=== PATIENT | male | born 1990 | race Caucasian/White ===

== ENCOUNTER 2020-02-03 16:20 | Observation (INO) | payer OTHER, SELFPAY ==
[2020-02-03] VITALS (11 sets, daily range): BP systolic 116–131; BP diastolic 63–78; PULSE 60–82; RESP 16–20; TEMP 36.2–37; O2SAT 98–100; BMI 22.4
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
[2020-02-03] MEDS: OXYCODONE/ACETAMINOPHEN 5/325 TABLET 1 TAB PO (16:59)
[2020-02-03] MEDS: IBUPROFEN 400 MG TABLET PO (16:59)
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
--- NOTE | 2020-02-03 17:10 | PC.NURSE ---
Soft cervical collar applied per provider Melany order.
[2020-02-03] MEDS: KETOROLAC 60 MG/2 ML VIAL 15 MG IV (17:57)
[2020-02-03] MEDS: HYDROMORPHONE 0.5 MG INJ IV (17:58)
[2020-02-03 18:30] LABS: COVID19 -Nasal RAPID Negative (Negative)
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
[2020-02-03] MEDS: DOCUSATE 100 MG CAPSULE PO (20:29)
[2020-02-03] MEDS: ACETAMINOPHEN 325 MG TABLET 650 MG PO (20:29)
[2020-02-03] MEDS: MORPHINE 4 MG/ML INJ IV ×2 (20:30→22:30)
[2020-02-03] MEDS: LACTATED RINGERS 1,000 ML 80 ML IV (20:31)
[2020-02-03] MEDS: NEOMYCIN/POLYMYXIN/BACITRA UD OINT 1 EACH TOP (21:48)
[2020-02-03] MEDS: GABAPENTIN 300 MG CAPSULE PO (21:48)
[2020-02-03] MEDS: KETOROLAC 30 MG/ML VIAL IV (21:59)
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
[2020-02-03] MEDS: ONDANSETRON 4 MG/2 ML INJ IV (22:59)
[2020-02-04] MEDS: OXYCODONE IR 5 MG TABLET 10 MG PO ×2 (00:17→07:04)
[2020-02-04 04:34] VITALS: BP 102/52; PULSE 85; RESP 16; TEMP 36.2; O2SAT 98
--- NOTE | 2020-02-04 07:00 | DI.RAD.S_ITS ---
PROCEDURE: XR CHEST 2V INDICATIONS: f/u. is pneumothorax visible? TECHNIQUE: Inspiratory and expiratory views chest were acquired. COMPARISON: [facility], CT, CT CERVICAL SPINE WO CON, 02/03/2020, 16:58. [facility], CT, CT CHEST W CON, 02/03/2020, 16:58. [facility], CR, XR SHOULDER LT MIN 2V, 02/03/2020, 16:41. FINDINGS: Surgical changes and devices: None. Lungs and pleura: The trace left apical pneumothorax can be seen the prior CT examinations is not visible on the current study. No pleural effusions or infiltrates are seen. Mediastinum: Mediastinal contours are normal. Heart size is normal. Bones and chest wall: No suspicious bony abnormalities. The moderately displaced, comminuted left posterior 2nd rib fracture is again seen. The left T1 transverse process wrist fracture is partially seen. Soft tissues appear unremarkable. IMPRESSION: No pneumothorax visible by plain film. Fractures again seen. Dictated by: Cameron Martinez M.D. on 02/04/2020 at 7:14 Approved by: Cameron Martinez M.D. on 02/04/2020 at 7:15
[2020-02-04 08:00] VITALS: BP 121/69; PULSE 62; RESP 15; TEMP 36.5; O2SAT 100
[2020-02-04] MEDS: ENOXAPARIN 40 MG/0.4 ML SYRINGE SUBCUT (08:27)
[2020-02-04] MEDS: ACETAMINOPHEN 325 MG TABLET 650 MG PO ×2 (08:29→12:38)
[2020-02-04] MEDS: GABAPENTIN 300 MG CAPSULE PO (08:30)
[2020-02-04] MEDS: LIDOCAINE PATCH 1 EACH ADH..PATCH TOP (08:33)
[2020-02-04] MEDS: ONDANSETRON 4 MG/2 ML INJ IV (08:51)
[2020-02-04 09:05] VITALS: PULSE 67; RESP 16; O2SAT 100
--- NOTE | 2020-02-04 10:16 | PC.NURSE ---
Addendum entered by Isaura Wolff R.N. 02/04/20 13:16: Patient given discharge instructions and disc containing imaging. Patient verbalized understanding regarding medication and follow up appointments. Patient encouraged to seek help at home until fully healed. Patient discharged via wheelchair. Tolerated well. Original Note: Patient is A/O x 4. Respirations are WNL at 14-16 bpm, denies SOB or increased WOB, lungs clear, pt on room air. LR at 80cc/hr infusing. Pt C/O aching pain 3/10 in left shoulder. Believes pain medication is effective but he became nauseous over night after morphine administration, given Oxy this morning and scheduled tylenol. Patient c/o of feeling sweaty afterwards, slightly nauseous, blaming it on coffee on an empty stomach, requesting zofran. Zofran PRN administered, on follow up patient is sleeping. Respirations normal. Sling intact. Call light in reach.
[2020-02-04 11:11] VITALS: PULSE 67; RESP 15; O2SAT 100
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
[2020-02-04 11:38] VITALS: BP 144/73; PULSE 57; RESP 16; TEMP 36.4; O2SAT 100
[2020-02-04] MEDS: INFLUENZA VACCINE 0.5 ML SYRINGE IM (11:53)
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
== END 2020-02-04 13:10 | disposition home or self-care (01) ==
LOC: ED 18:23 → AC 20:31
PROVIDERS: Emergency Medicine; Admitting Provider Specialist; Emergency Provider Emergency Medicine; Referring Provider Emergency Medicine; Visit Provider Specialist
DX: S42.032A Displaced fracture of lateral end of left clavicle, initial encounter for closed fracture (principal); M25.512 Pain in left shoulder; V18.0XXA Pedal cycle driver injured in noncollision transport accident in nontraffic accident, initial encounter; Y93.55 Activity, bike riding; S22.018A Other fracture of first thoracic vertebra, initial encounter for closed fracture; S22.32XA Fracture of one rib, left side, initial encounter for closed fracture; J93.9 Pneumothorax, unspecified; Z11.59 Encounter for screening for other viral diseases
CPT/HCPCS: 71046; 71260; 72125; 73030; 87635; 90471; 90656; 94762; 96361; 96372; 96374; 96375; 96376; 97161; 99217; 99219; 99284; G0378; J1170; J1650; J1885; J2270; J2405; Q2038; Q9967

== ENCOUNTER → 2020-02-15 13:26 | Outpatient (CLI) | payer OTHER, SELFPAY ==
[2020-02-03 19:15] VITALS: BMI 22.4
--- NOTE | 2020-02-15 13:29 | DI.RAD.S_ITS ---
PROCEDURE: XR CHEST 2V INDICATIONS: Follow-up after hospitalization for rib fractures/pneumothor TECHNIQUE: 2 views of the chest were acquired. COMPARISON: [facility], CT, CT CHEST W CON, 02/03/2020, 16:58. [facility], CR, XR CHEST 2V, 02/04/2020, 7:00. FINDINGS: Surgical changes and devices: None. Lungs and pleura: Trace left apical pneumothorax is suspected. No findings to suggest developing tension. Lungs are clear. No pleural effusions or pneumothorax. Mediastinum: Mediastinal contours are normal. Heart size is normal. Bones and chest wall: Displaced left 2nd rib fracture is present. No suspicious bony abnormalities. Soft tissues appear unremarkable. IMPRESSION: 1. Trace left apical pneumothorax is suspected. No findings to suggest tendon pneumothorax. 2. Left 2nd rib fracture with displacement. Dictated by: Ankita Barrientos M.D. on 02/15/2020 at 13:41 Approved by: Ankita Barrientos M.D. on 02/15/2020 at 13:46
== END ==
PROVIDERS: Referring Provider Specialist; Visit Provider Specialist
DX: S22.019A Unspecified fracture of first thoracic vertebra, initial encounter for closed fracture (principal); S22.32XA Fracture of one rib, left side, initial encounter for closed fracture; S27.0XXA Traumatic pneumothorax, initial encounter
CPT/HCPCS: 71046; 99213

== ENCOUNTER → 2020-10-23 16:15 | Outpatient (CLI) | payer OTHER, SELFPAY ==
[2020-02-03 19:15] VITALS: BMI 22.4
--- NOTE | 2020-10-23 | DI.MRI.S_ITS ---
PROCEDURE: MR SHOULDER LT WO CON INDICATIONS: Unspecified dislocation of left acromioclavicular TECHNIQUE: Noncontrast oblique coronal T2 fast spin echo with fat saturation, oblique sagittal T1 spin echo and T2 fast spin echo with fat saturation, axial T1 spin echo and T2 fast spin echo with fat saturation through the shoulder. COMPARISON: None. FINDINGS: Rotator cuff: Supraspinatus tendinopathy with low-grade bursal and articular surface fraying. Infraspinatus and teres minor tendons appear intact. Subscapularis tendon appears intact. No atrophy of the rotator cuff muscles although mild fatty infiltration of the infraspinatus is noted. Bones and bursae: No bone marrow contusions or fractures. Severe hypertrophic acromioclavicular joint degeneration. Acromion demonstrates conventional anatomy, without an os acromiale. [id number]-[id number] subacromial-subdeltoid bursitis. Capsule and soft tissues: Labrum: Mild irregularity of the posterior labrum, raising possibility of subtle chronic tear. Minimal adjacent chondral loss. There is minimal degenerative change in the glenoid.. Glenohumeral ligaments: Inferior and superior glenohumeral ligaments are intact. Biceps tendon: Long head of the biceps tendon intact. Rotator interval: Normal signal intensity. Coracohumeral ligament: Intact. IMPRESSION: Supraspinatus tendinopathy with low-grade articular and bursal surface fraying. Mild irregularity of the posterior labrum raising the possibility of a subtle chronic tear versus slightly advanced labral degeneration. Dictated by: Robel Fulton M.D. on 10/23/2020 at 17:18 Approved by: Robel Fulton M.D. on 10/23/2020 at 17:24
== END ==
PROVIDERS: Referring Provider Orthopaedic Surgery; Visit Provider Orthopaedic Surgery
DX: S43.102A Unspecified dislocation of left acromioclavicular joint, initial encounter (principal); M19.012 Primary osteoarthritis, left shoulder; M75.52 Bursitis of left shoulder
CPT/HCPCS: 73221

== ENCOUNTER 2024-10-07 09:54 | Emergency (ER) | payer OTHER, SELFPAY ==
[2020-02-03 19:15] VITALS: BMI 22.4
[2024-10-07 10:04] VITALS: BP 155/71; PULSE 72; RESP 20; TEMP 36.6; O2SAT 99; BMI 21.7
--- NOTE | 2024-10-07 10:15 | DI.MRI.S_ITS ---
PROCEDURE: MR HEAD/BRAIN WO/W CON INDICATIONS: One-month, severe vertigo, retro-orbital pain and morning he TECHNIQUE: Noncontrast axial T1 spin echo, axial T2 fast spin echo, sagittal and axial FLAIR, coronal T2 fast spin echo, axial gradient echo, axial diffusion and ADC through the brain. After the administration of contrast, axial and coronal and sagittal 3D VIBE or T1 spin echo with fat saturation through the brain. COMPARISON: None. FINDINGS: Image quality: Excellent. CSF Spaces: Basal cisterns are patent. No extra-axial fluid collections. Ventricles are normal in size and shape. Brain: No midline shift. No intracranial bleeds or masses. No abnormal intracranial enhancement. The brainstem appears normal. Diffusion-weighted images demonstrate no acute infarct. No chronic ischemic insults. Normal intravascular flow voids are present. Skull and face: Calvarial marrow is normal in signal. Orbits appear normal. Sinuses: Sinuses and mastoids appear clear. IMPRESSION: Normal MRI brain with contrast. Dictated by: Jerry Dalal M.D. on 10/07/2024 at 10:45 Approved by: Jerry Dalal M.D. on 10/07/2024 at 10:47
[2024-10-07 10:30] LABS: Add Manual Diff / Slide Review NO; Hematocrit 43.9 % (41-53); Hemoglobin 14.9 g/dL (13.5-17.5); Lymphocytes Absolute Auto 2400 /uL (1100-4500); Mean Corpuscular HGB Conc 34.0 % (30-36); Mean Corpuscular Hemoglobin 31.0 PG (26-34); Mean Corpuscular Volume 91.0 fL (80-100); Platelet Count 180 X10^3/uL (150-400)
[2024-10-07 10:41] LABS: Alanine Aminotransferase 25 IU/L (<50); Albumin 4.6 g/dL (3.5-5.0); Albumin Globulin Ratio 1.7 (1.0-2.8); Alkaline Phosphatase 46 U/L (38-126); Blood Urea Nitrogen 15 mg/dL (9-20); Calcium 9.1 mg/dL (8.4-10.2); Carbon Dioxide 29 mmol/L (22-32); Chloride 102 mmol/L (98-107); Estimated Glomerular Filt Rate > 60 mL/min (>60); Globulin 2.7 g/dL (1.7-4.1); Glucose 97 mg/dL (70-99); HEMOLYSIS < 15 (0-50); Potassium 4.2 mmol/L (3.4-5.1); Sodium 139 mmol/L (137-145); Total Protein 7.3 g/dL (6.3-8.2)
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
[2024-10-07 11:19] LABS: TSH w/ Reflex to FT4 0.84 uIU/mL (0.47-4.68)
[2024-10-07 12:25] VITALS: BP 155/70; PULSE 70; RESP 18; TEMP 36.6; O2SAT 99
== END 2024-10-07 12:25 | disposition home or self-care (01) ==
PROVIDERS: Emergency Provider Emergency Medicine
DX: R42 Dizziness and giddiness (principal)
CPT/HCPCS: 36415; 70553; 80053; 84443; 85025; 99283; 99284; A9579

== ENCOUNTER 2025-02-26 09:29 | Outpatient (RCR) | payer OTHER, SELFPAY ==
[2020-02-03 19:15] VITALS: BMI 22.4
--- NOTE | 2025-02-26 10:23 | PT.OPPOC ---
Physical, Occupational & Speech Therapy At [facility] Current Diagnoses Dizziness and giddiness (02/26/25) Visit Care Team Role Provider Type Mabel Mchugh MD Attending Provider Non-Staff Family Provider Primary Care Provider Referring Provider Specialty: Family Practice Address: [address] [place] [address], [id number] Email: Plan Of Care PT OP: Balance, Vestibular, Neuro Start: 02/26/25 10:12 Freq: Status: Active Protocol: Document 02/26/25 09:45 DCW (Rec: 02/26/25 10:23 DCW [id number]) Out-Patient Physical Therapy Visit Information Visit Information Visit Type Initial Evaluation Visit Start Time 09:45 Visit Stop Time 10:05 Visit Number 1 Number of IMPORT EXPORT MANAGER Visits 0 Evaluation Information Evaluation Date 02/26/25 Current Condition History of Current Condition Onset Date August, Current Complaints Vertigo History of Current Pt is a 35 year old male presenting with a history of Condition spontaneous vertigo, although is currently asymptomatic . Pt reports that in August, he woke up with fairly severe vertigo lasting multiple hours. Notes symptoms finally subsided, but he was still frequently getting dizziness/unsteadiness and headaches. Was finally places on Prednisone, which seemed to help a lot. Went through a lot of testing, including an MRI and labs, which was all negative. In November, he was seen by a neuro ironworker apprentice shop, who suggested he may have had an inflammatory flare-up of his [employer], and expected symptoms to eventually go away, but referred him to Vestibular PT. 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 Denies hearing changes, ringing in his ears, aural pressure, or change in vision. Patient Questionnaires Dizziness Handicap Inventory DHI Score 0% DHI Functional 0% Impaired (Score 0) Impairment Vestibular Assessment Auditory Tests Hernandez Test Within normal limits Rinne Test Negative Air Conduction Equal Results Visual Testing Smooth Pursuits WNL Horizontal Smooth Pursuits WNL Vertical Saccades Horizontal WNL Heave Test Negative Thrust Head Negative Nick String Test WNL Convergence Test WNL DVA (Line 2 Degradation) Vestibular Function Tests Fukuda Test WNL CTSIB Position 1 Minimal Sway CTSIB Position 2 Minimal Sway CTSIB Position 3 Minimal Sway CTSIB Position 4 Minimal Sway CTSIB Position 5 Mild Sway CTSIB Position 6 Minimal Sway Physical Therapy Assessment Evaluation Complexity Number of Personal 0 Factors/ Comorbidities Number of Body 1-2 Systems Impaired Clinical Stable Presentation at Evaluation Assessment Summary Assessment Pt does not currently exhibit any signs or symptoms suggestive of inner ear dysfunction. Vestibular testing today was entirely negative. Pt unlikely to benefit from vestibular rehabilitation. No indications of lingering symptoms. Discharge from PT at this time. Physical Therapy Plan Frequency and Duration Frequency of 1x/Week Treatment Plan of Care Start 02/26/25 Date Plan of Care End 02/27/25 Date Discharge Physical Therapy Discharge Comments No further vestibular rehab indicated at this time. Next Visit Focus/Plan Next Note Type Discharge Summary Plan of Care Dates Plan of Care Start Date 02/26/25 Plan of Care End Date 02/27/25 Electronically Signed by: Gomez Steele, PT 02/26/25 1023 If you are in agreement with this Plan of Care, please return a signed and dated copy. I have reviewed this Plan of Care and certify that the skilled therapy services above are required to meet the patient?s needs. Physician Signature Date Printed Name and Credentials Clinical Instructor Signature Printed Name and Credentials
== END 2025-02-27 09:31 | disposition home or self-care (01) ==
LOC: PHYS 09:29
DX: R42 Dizziness and giddiness (principal)
CPT/HCPCS: 97161